=== PATIENT | male | born 1995 | race Caucasian/White ===

== ENCOUNTER → 2019-05-01 08:33 | Outpatient (CLI) | payer OTHER, SELFPAY ==
[2019-05-01 09:25] LABS: Absolute Lymphocyte Count 1.85 X10^3/uL (0.83-4.51); Absolute Neutrophil Count 3.2 X10^3/uL (2.0-7.7); Basophil# 0.03 X10^3/uL; Basophil% 0.5 % (0-1); Eosinophil# 0.16 X10^3/uL; Eosinophils% 2.8 % (0-5); Lymphocyte # 1.85 X10^3/ul (4.0); Lymphocyte % 31.9 % (19-41); Mean Corp Hgb Conc 32.6 g/dL (32-36); Mean Corpuscular Hgb 28.5 pg (27.0-32.0); Mean Corpuscular Volume 87.5 fL (80-94); Mean Platelet Vol. 9.9 fl (6.2-12.0); Monocyte# 0.52 X10^3/uL; NRBC Flagged by Analyzer 0 % (0-5); Neutrophil # 3.22 X10^3/uL (2.7-7.7); Neutrophil % 55.5 % (47-70); Platelet Count 216 K/mm3 (150-450); RBC Distribution Width CV 13.3 % (11.6-14.6); RBC Distribution Width SD 42.7 fl (35.1-43.9); Red Blood Count 5.26 M/mm3 (4.6-6.2); White Blood Count 5.8 K/mm3 (4.4-11.0)
[2019-05-01 10:37] LABS: ALB/GLOB Ratio 1.2 RATIO (0.9-2.4); AST(SGOT) 26 U/L (15-37); Alanine Aminotransfer ALT/SGPT 48 U/L (16-61); Albumin, Serum 4.1 g/dL (3.2-5.0); Alkaline Phosphatase 76 U/L (45-117); Anion Gap 6 (5-15); BUN 12 mg/dL (7-18); BUN/Creat Ratio 10.8 RATIO (10-20); Calcium,Total 9.4 mg/dL (8.5-10.1); Chloride 105 mmol/L (98-107); Cholesterol 145 mg/dL (200); Creatinine, Serum 1.11 mg/dL (0.70-1.30); EST Glomerular Filtration Rate 85 mL/min (>60); Est Glom Filt Rate - Afr Amer 103 mL/min (>60); Globulin 3.5 g/dL (2.2-4.2); Glucose 106 mg/dL (74-106); High Density Lipoprotein 49 mg/dL; Potassium 4.2 mmol/L (3.5-5.1); Protein, Total 7.6 g/dL (6.4-8.2); Sodium Level 140 mmol/L (136-145); T4 Free Direct 1.09 ng/dL (0.76-1.46); Thyroid Stim Hormone (TSH) 0.44 uIU/mL (0.358-3.74); Triglycerides 97 mg/dL; Very Low Density Lipoprotein 19 mg/dL (5-40)
== END ==
PROVIDERS: Family Provider Family Medicine; PCP Family Medicine; Referring Provider Family Medicine; Visit Provider Family Medicine
DX: Z00.00 Encounter for general adult medical examination without abnormal findings (principal); E04.1 Nontoxic single thyroid nodule
CPT/HCPCS: 36415; 80053; 80061; 84439; 84443; 85025

== ENCOUNTER → 2019-05-14 15:07 | Outpatient (CLI) | payer OTHER, SELFPAY ==
--- NOTE | 2019-05-14 15:10 | ECHOD_ITS ---
Reason For Study: Mid Systolic Click Procedure This was a 2D Doppler, Color Flow transthoracic echocardiogram. Exam performed in department. Left Ventricle Normal size and thickness. The estimated ejection fraction is 65 %. Normal diastology for age. No regional wall motion abnormalities noted. Right Ventricle Normal size and thickness. Normal systolic function. Atria Normal left atrium. Normal right atrium. Normal atrial septum. Mitral Valve The mitral valve is structurally normal. No prolapse or stenosis seen. Equivocal mitral valve prolapse. Tricuspid Valve Normal tricuspid valve. Trivial tricuspid valve insufficiency. Right ventricular systolic pressure estimated to be 25 mmHg. Aortic Valve Normal aortic valve. Trisinus/trileaflet aortic valve. Pulmonic Valve Normal pulmonic valve. Great Vessels Normal aortic root. Normal arch. Normal inferior vena cava. Inferior vena cava collapse with sniff. Pericardium/Pleural No pericardial effusion. MMode/2D Measurements & Calculations LVIDd: 4.3 cm IVSd: 1.2 cm Ao root diam: 2.8 cm LVIDs: 2.8 cm LVPWd: 1.2 cm LA dimension: 4.3 cm RVDd: 4.0 cm FS: 34.6 % LAV(MOD-bp): 70.2 ml LA A4 area: 22.0 cm2 RA A4 area: 18.7 cm2 LAV(MOD-bp) Indexed: 27.5 ml/m2 LAV(MOD-sp2): 68.6 ml LAV(MOD-sp4): 69.8 ml Time Measurements MV dec time: 0.28 sec Doppler Measurements & Calculations MV E max florentin: 85.7 cm/sec Lat Peak E' Florentin: 17.1 cm/sec Med Peak E' Florentin: 11.0 cm/sec MV A max florentin: 48.5 cm/sec E/E' lat: 5.0 E/E' med: 7.8 MV E/A: 1.8 MV V2 max: 100.9 cm/sec MV P1/2t max florentin: 100.9 cm/sec Ao V2 max: 132.7 cm/sec MV max P.1 mmHg MV P1/2t: 74.2 msec Ao max P.0 mmHg MV V2 mean: 47.0 cm/sec MV dec slope: 398.2 cm/sec2 Ao V2 mean: 81.2 cm/sec MV mean P.1 mmHg MVA(P1/2t): 3.0 cm2 Ao mean P.1 mmHg MV V2 VTI: 31.1 cm Ao V2 VTI: 25.1 cm LV V1 max: 122.5 cm/sec PA V2 max: 128.1 cm/sec TR max florentin: 226.0 cm/sec LV V1 max P.0 mmHg TR max P.4 mmHg LV V1 mean P.6 mmHg LV V1 mean: 73.0 cm/sec LV V1 VTI: 25.6 cm Interpretation Summary The estimated ejection fraction is 65 %. Normal diastology for age. Equivocal mitral valve prolapse. Difficult echo imaging, but no overt mitral valve prolapse. Trivial tricuspid valve insufficiency. Right ventricular systolic pressure estimated to be 25 mmHg. The study was technically difficult. Would consider a transesophageal echocardiogram if clinically indicated. Ordering Physician: Toney Levine Referring Physician: Toney Levine Performed By: Vicente Horn RCS
== END ==
PROVIDERS: Family Provider Family Medicine; PCP Family Medicine; Referring Provider Family Medicine; Visit Provider Family Medicine
DX: R01.2 Other cardiac sounds (principal)
CPT/HCPCS: 93306

== ENCOUNTER → 2019-05-31 13:22 | Outpatient (CLI) | payer OTHER, SELFPAY ==
--- NOTE | 2019-05-31 13:27 | US_ITS ---
STUDY: THYROID ULTRASOUND REASON FOR EXAM: Male, 23 years old. Nodule identified on clinical exam. TECHNIQUE: Ultrasound evaluation of the thyroid was performed with real-time and static ruby-scale imaging. COMPARISON: None. FINDINGS: RIGHT LOBE: The right lobe of the thyroid gland is enlarged and measures 6.0 x 2.4 x 2.0 cm. There is a homogeneous echotexture. Lower pole complex cystic nodule measuring 0.6 x 0.3 x 0.2 cm. LEFT LOBE: The left lobe of the thyroid gland is enlarged and measures 6.2 x 2.6 x 1.7 cm. There is a homogeneous echotexture. Lower pole complex cystic nodules measuring 0.5 x 0.4 x 0.3 cm and 0.5 x 0.5 x 0.4 cm. ISTHMUS: The isthmus measures 4 mm which is normal. The regional lymph nodes are normal. US/Thyroid IMPRESSION: Thyromegaly with bilateral subcentimeter complex cystic nodules. Electronically Signed: Carlo Chavira MD at 6:04 EDT , Service support ,
== END ==
PROVIDERS: Family Provider Family Medicine; PCP Family Medicine; Referring Provider Family Medicine; Visit Provider Family Medicine
DX: E04.1 Nontoxic single thyroid nodule (principal)
CPT/HCPCS: 76536

== ENCOUNTER → 2019-06-02 16:00 | Outpatient (CLI) | payer OTHER, SELFPAY ==
[2019-06-07 13:23] LABS: Anti-Thyroglobulin AB < 1.0 IU/mL (0.0-0.9); Thyroid Peroxidase AB 27 IU/mL (0-34)
== END ==
PROVIDERS: Family Provider Family Medicine; PCP Family Medicine; Referring Provider Family Medicine; Visit Provider Family Medicine
DX: E01.0 Iodine-deficiency related diffuse (endemic) goiter (principal)
CPT/HCPCS: 36415; 84432; 86376; 86800